=== PATIENT | female | born 1995 | race Two or more races ===

== ENCOUNTER 2018-10-24 18:02 | Emergency (ER) | payer OTHER ==
[~2018-10-24] VITALS: Ht 160 cm; Wt 58.5 kg
[2018-10-24 18:16] VITALS: BP 137/105
[2018-10-24] MEDS ORDERED: IBUPROFEN 400 MG TABLET ONE (18:33)
[2018-10-24] MEDS ORDERED: IBUPROFEN 400 MG TABLET PO ONE (19:00)
== END 2018-10-24 18:59 | disposition home or self-care (01) ==
LOC: ER 18:04
DX: R51 Headache (principal); R11.0 Nausea; V49.49XA Driver injured in collision with other motor vehicles in traffic accident, initial encounter; Y93.89 Activity, other specified; Y92.413 State road as the place of occurrence of the external cause; Y99.8 Other external cause status
CPT/HCPCS: 99283; A4606; Z7610